=== PATIENT | male | born 1995 | race African-American/Black ===

== ENCOUNTER 2019-04-07 22:36 | Emergency (ER) | payer OTHER ==
[~2019-04-07] VITALS: Ht 180.3 cm; Wt 124.5 kg
[2019-04-07] MEDS ORDERED: ACETAMINOPHEN 500 MG TABLET ONE (22:54)
[2019-04-07] MEDS ORDERED: ACETAMINOPHEN 500 MG TABLET PO ONE (23:00)
[2019-04-07 23:35] LABS: INFLUENZA TYPE A NEGATIVE FOR TYPE A (NEGATIVE); INFLUENZA TYPE B NEGATIVE FOR TYPE B (NEGATIVE)
[2019-04-08 00:12] VITALS: BP 127/84
[2019-04-08] MEDS ORDERED: ACETAMINOPHEN 500 MG TABLET PO ONE (00:45)
== END 2019-04-08 00:53 | disposition home or self-care (01) ==
LOC: EMS 22:36
DX: B34.9 Viral infection, unspecified (principal)
CPT/HCPCS: 87804

== ENCOUNTER 2020-04-24 18:30 | Emergency (ER) | payer OTHER ==
[~2020-04-24] VITALS: Ht 180.3 cm; Wt 127.3 kg
[2020-04-24] MEDS ORDERED: KETOROLAC TROMETHAMINE 30 MG/ML VIAL IM ONE (19:15)
[2020-04-24 20:30] VITALS: BP 122/58
== END 2020-04-24 21:05 | disposition home or self-care (01) ==
LOC: EMS 18:30
DX: S52.612A Displaced fracture of left ulna styloid process, initial encounter for closed fracture (principal); E78.00 Pure hypercholesterolemia, unspecified; V43.52XA Car driver injured in collision with other type car in traffic accident, initial encounter; Y93.89 Activity, other specified; Y92.89 Other specified places as the place of occurrence of the external cause; Y99.8 Other external cause status
CPT/HCPCS: 29125; 71046; 72170; 73030; 73080; 73090; 73110; 73130; 96372; 99284; J1885